=== PATIENT | male | born 1990 | race Caucasian/White ===

== ENCOUNTER 2018-04-14 16:32 | Outpatient (CLI) ==
[2015-08-15 07:14] VITALS: BMI 42.5
== END 2018-04-14 16:33 | disposition home or self-care (01) ==
LOC: FCC-LAB 16:32
PROVIDERS: ATTEND Nurse Practitioner Family
DX: R50.9 Fever, unspecified (principal); R11.2 Nausea with vomiting, unspecified
CPT/HCPCS: 87502

== ENCOUNTER 2018-07-13 14:57 | Outpatient (CLI) ==
[2015-08-15 07:14] VITALS: BMI 42.5
== END 2018-07-13 14:58 | disposition home or self-care (01) ==
LOC: CAR 14:57
PROVIDERS: ATTEND Psychiatry & Neurology Sleep Medicine
DX: G47.33 Obstructive sleep apnea (adult) (pediatric) (principal)
CPT/HCPCS: 95811

== ENCOUNTER 2018-07-23 13:06 | Emergency (ER) ==
[2018-07-23 13:26] VITALS: BP 149/101; TEMP 97.1; BMI 44.0
--- NOTE | 2018-07-23 14:16 | ED.PDOC ---
General ED Provider: Dr. ISAIAS CUETO Chief Complaint: Respiratory Complaint Stated Complaint: hypersensitivity to cooking food smells,sinusitis ethmoidal and maxillary,left maxillary sinus retention cyst. Time Seen by Physician: 14:15 Mode of Arrival: Walk-In Information Source: Patient Exam Limitations: No limitations Nursing and Triage Documentation Reviewed and Agree: Yes Does patient meet sepsis criteria?: No System Inflammatory Response Syndrome: Not Applicable Sepsis Protocol: For patient's 13 years and over: Temp is 96.8 and below OR 101 and greater Pulse >90 BPM Resp >20/minute Acutely Altered Mental Status Are patient's symptoms suggestive of a new infection, such as: -Pneumonia -Skin, Soft Tissue -Endocarditis -UTI -Bone, Joint Infection -Implantable Device -Acute Abdominal Infection -Wound Infection -Meningitis -Blood Stream Catheter Infection -Unknown Respiratory Complaint Exam - Respiratory Complaint/Exam Onset/Duration: two days Symptoms Are: Still present Timing: Intermittent Initial Severity: Mild Current Severity: Mild Location: Nose Character: Reports: Dry cough Aggravating: Reports: Passive smoke exposure, Weather Alleviating: Reports: None, Spontaneous resolution Associated Signs and Symptoms: Reports: Decreased oral intake History of Healthcare-Acquired Pneumonia: No Related Surgical History: Reports: None Pulmonary Embolism Risk Factors: None Cardiac Risk Factors: Reports: None Pseudomonas Risk Factors: Reports: None Tuberculosis Risk Factors: Reports: None Status Asthmaticus Risk Factors: Reports: None Home Oxygen Use: No Recent Stress Test: No Recent Echo/LV Function: No Current Antibiotic Use: No Current Asthma Medication Use: No Respiratory Distress: None Inadequate Respiratory Effort: No Dysphagia Present: No Stridor Present: No JVD Present: No Accessory Muscle Use: No Retractions: Not Present Diminished Breath Sounds: No Sinus Tenderness: None Grunting Respirations: No Kussmaul Respirations: No Differential Diagnoses: Influenza Review of Systems - Review Of Systems Constitutional: Reports: No symptoms Eyes: Reports: No symptoms Ears, Nose, Mouth, Throat: Reports: No symptoms, Throat swelling Respiratory: Reports: No symptoms Cardiac: Reports: No symptoms GI: Reports: No symptoms : Reports: No symptoms Musculoskeletal: Reports: No symptoms Neurological: Reports: No symptoms Endocrine: Reports: No symptoms Hematologic/Lymphatic: Reports: No symptoms All Other Systems: Reviewed and Negative Past Medical History - Past Medical History Previously Healthy: Yes Endocrine: Reports: None Cardiovascular: Reports: None Respiratory: Reports: None Hematological: Reports: None Gastrointestinal: Reports: None, Other Genitourinary: Reports: None Neuro/Psych: Reports: None Musculoskeletal: Reports: None Cancer: Reports: None - Surgical History General Surgical History: Reports: None - Family History Family History: Reports: Unknown - Social History Smoking Status: Never smoker Hx Substance Use: No Alcohol Screening: Occasionally Physical Exam - Physical Exam Appearance: Well-appearing Ill-appearing: None Pain Distress: None Eyes: JEREMIAH, Conjunctiva inflammed ENT: Ears normal Neck: Supple Respiratory: Airway patent Cardiovascular: RRR GI/: Soft Musculoskeletal: Normal strength Skin: Warm Neurological: Sensation intact, Alert Psychiatric: Affect appropriate Interpretation - Radiology Interpretation Radiology Interpretation By: Radiologist Radiology Results: Positive Exam Interpreted: CT Scan Xray Comments: CT showing maxillary and ethmoid sinusitis.Charley.retention cyst Radiology Interpretation By: Radiologist Critical Care Note - Critical Care Note Total Time (mins): 0 Course - Course Hematology/Chemistry: 07/23/18 14:33 07/23/18 14:33 Orders, Labs, Meds: Lab Review 07/23/18 07/23/18 07/23/18 14:33 14:33 14:33 WBC 17.66 H RBC 6.28 H Hgb 15.8 Hct 50.2 MCV 79.9 L MCH 25.2 L MCHC 31.5 L RDW Coeff of Eve 14.6 Plt Count 562 H Immature Gran % (Auto) 0.5 Neut % (Auto) 53.8 Lymph % (Auto) 29.5 Ocean % (Auto) 9.2 Eos % (Auto) 6.3 Baso % (Auto) 0.7 Immature Gran # (Auto) 0.1 Neut # (Auto) 9.5 H Lymph # (Auto) 5.2 H Ocean # (Auto) 1.6 Eos # (Auto) 1.1 H Baso # (Auto) 0.1 Sodium 143.5 Potassium 4.88 Chloride 102.9 Carbon Dioxide 31.9 H Anion Gap 13.58 BUN 11.0 Creatinine 0.78 Estimated GFR (MDRD) 118.00 BUN/Creatinine Ratio 14.10 Glucose 97.2 Lactic Acid Calcium 9.45 Total Bilirubin 0.35 AST 23.4 ALT 21.6 Alkaline Phosphatase 63.1 Total Protein 8.40 H Albumin 4.52 Globulin 3.88 Albumin/Globulin Ratio 1.16 Influ A Molecular Assay Negative by naat Influ B Molecular Assay Negative by naat 07/23/18 15:37 WBC RBC Hgb Hct MCV MCH MCHC RDW Coeff of Eve Plt Count Immature Gran % (Auto) Neut % (Auto) Lymph % (Auto) Ocean % (Auto) Eos % (Auto) Baso % (Auto) Immature Gran # (Auto) Neut # (Auto) Lymph # (Auto) Ocean # (Auto) Eos # (Auto) Baso # (Auto) Sodium Potassium Chloride Carbon Dioxide Anion Gap BUN Creatinine Estimated GFR (MDRD) BUN/Creatinine Ratio Glucose Lactic Acid 1.72 Calcium Total Bilirubin AST ALT Alkaline Phosphatase Total Protein Albumin Globulin Albumin/Globulin Ratio Influ A Molecular Assay Influ B Molecular Assay Orders Category Date Time Status EKG-(ED ONLY) Stat CARDIO 07/23/18 14:26 Completed CBC W/ AUTO DIFF Stat LAB 07/23/18 14:33 Completed CMP [COMPREHENSIVE METABOLIC PANEL] Stat LAB 07/23/18 14:33 Completed FLU A & B MOLECULAR [FLU A/B MOLECULAR] Stat LAB 07/23/18 14:33 Completed LACTIC ACID Stat LAB 07/23/18 15:28 Ordered RAPID STREP SCREEN [MOLECULAR GROUP A STREP] Stat LAB 07/23/18 14:33 Completed CHEST, 2 VIEWS PA & LAT Stat RADS 07/23/18 15:[address] HEAD W/O CONTRAST Stat RADS 07/23/18 14:31 Completed Vital Signs: Temp Pulse Resp BP Pulse Ox 07/23/18 13:07 97.1 F L 103 H 20 149/101 H 96 Departure - Departure Time of Disposition: 16:01 Disposition: HOME SELF-CARE Discharge Problem: Sinusitis due to Streptococcus pneumoniae Instructions: Sinusitis (ED) Condition: Good Pt referred to PMD for follow-up: No (follow with ENT for a definitive care as per above) IPMP verified?: No Additional Instructions: Follow up with your PCP Take medication as prescribed Follow up with ENT Augmentin 875mg 1 tablet twice a day 14 days (28 tabs) Allergies/Adverse Reactions: Allergies No Known Allergies Allergy (Verified 07/23/18 13:11) Disposition Discussed With: Patient
--- NOTE | 2018-07-23 15:09 | CT ---
EXAM: CT brain without contrast HISTORY: Change in olfactory perception, dizziness TECHNIQUE: Multi-slice sequential. Coronal and sagital reformations were performed. COMPARISON: None FINDINGS: There is no acute intracranial hemorrhage, extraxial fluid collection, mass affect, or midlineshift.T he ventricles are normal in size.The finch-white matter interface is maintained.The basal cisterns are patent.Minimal mucosal thickening is seen within the left ethmoid sinus. A mucous retention cyst is suggested in the left maxillary sinus measuring up to 3.1 cm. Mastoid air cells are well aerated.The calvarium is unremarkable. IMPRESSION: No acute intracranial findings. Chronic left ethmoid and maxillary sinus disease.
--- NOTE | 2018-07-23 15:48 | DI ---
EXAM: Chest PA and lateral HISTORY: Leukocytosis. COMPARRISON: 01/06/2008. FINDINGS: The heart is normal in size. Pulmonary vascularity is within normal limits. No focal airspa ce opacity or pleural effusion is seen. Osseous structures are unremarkable. IMPRESSION: No acute cardiopulmonary findings.
== END 2018-07-23 16:15 | disposition home or self-care (01) ==
LOC: ED 13:06
DX: J15.4 Pneumonia due to other streptococci (principal); J32.9 Chronic sinusitis, unspecified; B95.5 Unspecified streptococcus as the cause of diseases classified elsewhere; R43.8 Other disturbances of smell and taste
CPT/HCPCS: 36415; 80053; 83605; 85025; 87502; 87651; 93005; 93010; 99283

== ENCOUNTER 2018-08-01 09:19 | Outpatient (CLI) | payer OTHER | END 2018-08-01 09:20 | disposition home or self-care (01) | LOC: RHC-LAB 09:19 → FCC-LAB 09:20 | PROVIDERS: ATTEND Family Medicine | DX: D72.829 Elevated white blood cell count, unspecified (principal); D47.3 Essential (hemorrhagic) thrombocythemia | CPT/HCPCS: 36415; 85025 ==

== ENCOUNTER 2018-08-09 11:23 | Outpatient (CLI) | END 2018-08-09 11:24 | disposition home or self-care (01) | LOC: RHC-LAB 11:23 → FCC-LAB 11:24 | PROVIDERS: ATTEND Family Medicine | DX: D47.3 Essential (hemorrhagic) thrombocythemia (principal) | CPT/HCPCS: 36415; 82728; 83540; 83550; 85025; 85651; 86140 ==

== ENCOUNTER 2018-09-08 14:35 | Outpatient (CLI) | END 2018-09-08 14:36 | disposition home or self-care (01) | LOC: LAB 14:35 | PROVIDERS: ATTEND Family Medicine | DX: D72.829 Elevated white blood cell count, unspecified (principal); D47.3 Essential (hemorrhagic) thrombocythemia | CPT/HCPCS: 36415; 85025 ==

== ENCOUNTER 2018-11-10 08:56 | Outpatient (CLI) ==
--- NOTE | 2018-11-10 09:24 | DI ---
EXAM: Two views of the chest. History: Leukocytosis. Comparison: Chest radiograph 07/23/2018 Findings: Heart size is normal. No focal consolidation. No appreciable pleural fluid and no pneumo thorax. No acute osseous abnormalities. Impression: No acute cardiopulmonary process
--- NOTE | 2018-11-10 09:50 | US ---
EXAM: Ultrasound abdomen complete HISTORY: Leukocytosis COMPARISON: None TECHNIQUE: Complete ultrasound abdomen was performed FINDINGS: Evaluation is limited due to areas of shadowing artifact. Pancreas obscured secondary bow el gas shadowing. Visualized portion aorta and inferior vena cava unremarkable with portions obscure d secondary bowel gas shadowing. Liver normal in size. Liver diffusely increased in echogenicity. Portions of the liver obscured secondary to shadowing artifact. Main portal vein patent with directi on of flow. No shadowing gallstones. No gallbladder wall thickening. Pericholecystic fluid. No bi liary duct dilation with common bile duct measuring 0.4 cm. Right kidney measures 12.1 cm in length and left kidney measures 13.4 cm in length. No hydronephrosis. Spleen is obscured secondary bowel g as shadowing. Bladder unremarkable. IMPRESSION: 1. Hepatic steatosis. 2. Limited examination as described
== END 2018-11-10 08:57 | disposition home or self-care (01) ==
LOC: RAD 08:56
PROVIDERS: ATTEND Internal Medicine Medical Oncology
DX: D72.829 Elevated white blood cell count, unspecified (principal); D72.9 Disorder of white blood cells, unspecified; R05 Cough; Z87.19 Personal history of other diseases of the digestive system; Z86.2 Personal history of diseases of the blood and blood-forming organs and certain disorders involving the immune mechanism; D50.9 Iron deficiency anemia, unspecified; E66.3 Overweight; Z72.0 Tobacco use
CPT/HCPCS: 36415; 80053; 80074; 81001; 82607; 82728; 82746; 83540; 83550; 83615; 84443; 84550; 85025; 85045; 85610; 85651; 85730; 86320; 86430; 87389

== ENCOUNTER 2018-11-12 13:34 | Outpatient (CLI) | END 2018-11-12 13:35 | disposition home or self-care (01) | LOC: LAB 13:34 | PROVIDERS: ATTEND Internal Medicine Medical Oncology | DX: D72.829 Elevated white blood cell count, unspecified (principal); D72.9 Disorder of white blood cells, unspecified; Z86.2 Personal history of diseases of the blood and blood-forming organs and certain disorders involving the immune mechanism; Z87.19 Personal history of other diseases of the digestive system; D50.9 Iron deficiency anemia, unspecified; Z72.0 Tobacco use; E66.3 Overweight | CPT/HCPCS: 82272 ==